=== PATIENT | female | born 1970 | race Hispanic/Latino ===

== ENCOUNTER 2022-10-19 07:41 | Emergency (ER) | payer MEDICARE, OTHER ==
[~2022-10-19] VITALS: Ht 165.1 cm; Wt 127.0 kg
[2022-10-19 08:13] LABS: BASOPHILS % (AUTO) 0.2 % (0.0-5.0); EOSINOPHILS % (AUTO) 0.2 % (0.0-8.0); HEMATOCRIT 38.5 % (36-48); LYMPHOCYTES % (AUTO) 8.7 % (21.0-51.0); MEAN CORPUSCULAR HEMOGLOBIN 27.9 pg (27.0-33.0); MEAN CORPUSCULAR HGB CONC 31.7 g/dL (32.0-36.0); MEAN CORPUSCULAR VOLUME 88.1 fL (79-99); MONOCYTES % (AUTO) 2.7 % (3.0-13.0); NEUTROPHILS % (AUTO) 87.8 % (40.0-77.0); PLATELET COUNT (AUTO) 420 K/uL (130-400); RED BLOOD CELL COUNT(AUTO) 4.37 MIL/uL (4.00-5.50); RED CELL DISTRIBUTION WIDTH 14.5 % (11.0-15.5); WHITE BLOOD COUNT (AUTO) 13.2 K/uL (4.8-10.8)
[2022-10-19 08:24] LABS: APPEARANCE,URINE CLOUDY (CLEAR); BILIRUBIN,URINE NEGATIVE (NEGATIVE); COLOR,URINE LIGHT-YELLOW (YELLOW); GLUCOSE, URINE (UA) NEGATIVE (NEGATIVE); KETONES,URINE NEGATIVE (NEGATIVE); LEUKOCYTE ESTERASE ,URINE 250 Leu/uL (NEGATIVE); NITRATE,URINE NEGATIVE (NEGATIVE); OCCULT BLOOD,URINE NEGATIVE (NEGATIVE); PROTEIN,URINE NEGATIVE (NEGATIVE); UROBILINOGEN,URINE 0.2 mg/dL (0.2-1.0)
[2022-10-19 08:31] LABS: BACTERIA,URINE FEW /HPF (None Seen); MUCUS,URINE RARE LPF (None Seen); SQUAMOUS EPITHELIAL CELL,UR MOD /HPF (0-2)
[2022-10-19 08:53] LABS: ALBUMIN 3.6 g/dL (3.5-5.0); CREATININE 1.6 mg/dL (0.5-1.5); POTASSIUM 4.1 mmol/L (3.5-5.1); TOTAL PROTEIN, SERUM 7.7 g/dL (6.0-8.3)
[2022-10-19] MEDS ORDERED: MORPHINE 4 MG SYG ONE (10:04)
[2022-10-19] MEDS ORDERED: ONDANSETRON 4MG INJ ONE (10:04)
[2022-10-19 10:05] VITALS: BP 125/70
[2022-10-19] MEDS ORDERED: 0.9%NACL 1000ML 1,000 ML IV ONE (10:30)
[2022-10-19] MEDS ORDERED: ONDANSETRON 4MG INJ IVP ONE (10:30)
[2022-10-19] MEDS ORDERED: MORPHINE 4 MG SYG IVP ONE (10:30)
[2022-10-19] MEDS ORDERED: FAMO20TA8 PO (11:25)
[2022-10-19] MEDS ORDERED: SULF1TAB42 PO (11:27)
[2022-10-19] MEDS ORDERED: CEFTRIAXONE 1G VIAL IVPB ONE (11:30)
[2022-10-19] MEDS ORDERED: CEFTRIAXONE 1G VIAL ONE (11:36)
[2022-10-19] MEDS ORDERED: ONDA4TAB10 PO (11:48)
[2022-10-19] MEDS ORDERED: MORPHINE 2 MG SYG IVP ONE (12:00)
== END 2022-10-19 12:00 | disposition home or self-care (01) ==
LOC: EDH 07:41
DX: K80.20 Calculus of gallbladder without cholecystitis without obstruction (principal); N39.0 Urinary tract infection, site not specified; E11.9 Type 2 diabetes mellitus without complications; M79.7 Fibromyalgia; I10 Essential (primary) hypertension; Z90.710 Acquired absence of both cervix and uterus; Z79.899 Other long term (current) drug therapy
CPT/HCPCS: 99285; 74176; 96374; 96375; 96361; 84484; 80053; 83690; 85025; 87040 ×2; 87088; 83605; 81001; 36415; 93005; J2270 ×2; J7030; J0696; J2405

== ENCOUNTER 2022-11-06 22:19 | Observation (INO) | payer MEDICARE ==
[~2022-11-06] VITALS: Ht 165.1 cm; Wt 124.7 kg
[~2022-11-06 22:19] MED LIST: FAMO20TA8 PO; ONDA4TAB10 PO; SULF1TAB42 PO
[2022-11-06] MEDS ORDERED: DEXTROSE 50%-WATER 50 ML DISP.SYRIN IV ONE ×2 (22:49→23:00)
[2022-11-06 23:17] LABS: BASOPHILS % (AUTO) 0.2 % (0.0-5.0); HEMATOCRIT 37.8 % (36-48); LYMPHOCYTES % (AUTO) 18.4 % (21.0-51.0); MEAN CORPUSCULAR HEMOGLOBIN 28.5 pg (27.0-33.0); MEAN CORPUSCULAR HGB CONC 32.5 g/dL (32.0-36.0); MEAN CORPUSCULAR VOLUME 87.5 fL (79-99); MONOCYTES % (AUTO) 6.3 % (3.0-13.0); NEUTROPHILS % (AUTO) 73.7 % (40.0-77.0); PLATELET COUNT (AUTO) 446 K/uL (130-400); RED BLOOD CELL COUNT(AUTO) 4.32 MIL/uL (4.00-5.50); RED CELL DISTRIBUTION WIDTH 14.6 % (11.0-15.5); WHITE BLOOD COUNT (AUTO) 9.1 K/uL (4.8-10.8)
[2022-11-06 23:33] LABS: APPEARANCE,URINE CLEAR (CLEAR); BILIRUBIN,URINE NEGATIVE (NEGATIVE); COLOR,URINE LIGHT-YELLOW (YELLOW); GLUCOSE, URINE (UA) 70 mg/dL (NEGATIVE); KETONES,URINE NEGATIVE (NEGATIVE); LEUKOCYTE ESTERASE ,URINE 500 Leu/uL (NEGATIVE); NITRATE,URINE NEGATIVE (NEGATIVE); OCCULT BLOOD,URINE NEGATIVE (NEGATIVE); PH,URINE 5.5 (5.0-8.0); PROTEIN,URINE NEGATIVE (NEGATIVE); UROBILINOGEN,URINE 0.2 mg/dL (0.2-1.0)
[2022-11-06 23:36] LABS: ALANINE AMINOTRANSFERASE 35 U/L (12-78); ALBUMIN 3.7 g/dL (3.5-5.0); ASPARTATE AMINOTRANSFERASE 23 U/L (10-37); CARBON DIOXIDE 20 mmol/L (21-32); CHLORIDE 109 mmol/L (101-111); CREATININE 1.5 mg/dL (0.5-1.5); GLOMERULAR FILTR. RATE CALC 42 mL/min (>90); POTASSIUM 3.6 mmol/L (3.5-5.1); SODIUM SERUM 140 mmol/L (136-145); UREA NITROGEN, BLOOD 33 mg/dL (7-18)
[2022-11-06 23:38] LABS: ACETAMINOPHEN < 1 mcg/mL (10-30); SALICYLATE < 2.8 mg/dL (2.8-20.0)
[2022-11-06 23:38] LABS: BACTERIA,URINE RARE /HPF (None Seen); MUCUS,URINE RARE LPF (None Seen); SQUAMOUS EPITHELIAL CELL,UR FEW /HPF (0-2); WBC,URINE 26-50 /HPF (0-1)
[2022-11-06 23:39] LABS: GLUCOSE,RANDOM 32 mg/dL (70-105)
[2022-11-06 23:48] LABS: INR 0.94 (0.85-1.15); PROTHROMBIN TIME 10.9 SEC (9.6-11.6)
[2022-11-06 23:48] LABS: AMPHET/METH SCREEN,URINE NEGATIVE (NEGATIVE); BARBITURATE SCREEN, URINE NEGATIVE (NEGATIVE); BENZODIAZEPINES SCREEN,URINE NEGATIVE (NEGATIVE); CANNABINOID SCREEN,URINE NEGATIVE (NEGATIVE); COCAINE SCREEN,URINE NEGATIVE (NEGATIVE); OPIATE SCREEN,URINE NEGATIVE (NEGATIVE); PHENCYCLIDINE SCREEN,URINE NEGATIVE (NEGATIVE)
[2022-11-06] MEDS ORDERED: DEXTROSE 10%-WATER 1,000 ML IV ONE (23:48)
[2022-11-06 23:50] LABS: PARTIAL THROMBOPLASTIN TIME 26.4 SEC (26.3-35.5)
[2022-11-07] MEDS ORDERED: DEXTROSE 50%-WATER 50 ML DISP.SYRIN IV ONE
[2022-11-07] MEDS ORDERED: CEFTRIAXONE 1G VIAL IVPB ONE (00:30)
[2022-11-07] MEDS ORDERED: ACETAMINOPHEN 325 MG TAB PO PRN ×2 (02:30)
[2022-11-07] MEDS ORDERED: ONDANSETRON 4MG INJ IV PRN (02:30)
[2022-11-07] MEDS ORDERED: NITROGLYCERIN 0.4 MG SL TAB SL PRN (02:30)
[2022-11-07] MEDS ORDERED: GLUCAGON 1MG KIT 1 MG ML IM PRN (02:30)
[2022-11-07] MEDS ORDERED: DEXTROSE 50%-WATER 50 ML DISP.SYRIN IV PRN (02:30)
[2022-11-07 03:33] VITALS: BP 137/64
[2022-11-07] MEDS ORDERED: METO-391 PO (04:11)
[2022-11-07] MEDS ORDERED: TRAM50TA4 PO (04:11)
[2022-11-07] MEDS ORDERED: GLIP10TA19 PO (04:11)
[2022-11-07] MEDS ORDERED: ALLO100T PO (04:11)
[2022-11-07] MEDS ORDERED: TIRZ10PE SQ (04:11)
[2022-11-07] MEDS ORDERED: ACET250T28 PO (04:11)
[2022-11-07] MEDS ORDERED: FENO134C21 PO (04:11)
[2022-11-07] MEDS ORDERED: GABA600T10 PO (04:11)
[2022-11-07] MEDS ORDERED: LISI40TA9 PO (04:11)
[2022-11-07] MEDS ORDERED: TOPI200T16 PO (04:11)
[2022-11-07] MEDS ORDERED: SERT-439 PO (04:11)
[2022-11-07 07:12] LABS: BASOPHILS % (AUTO) 0.3 % (0.0-5.0); EOSINOPHILS % (AUTO) 1.1 % (0.0-8.0); HEMATOCRIT 34.8 % (36-48); LYMPHOCYTES % (AUTO) 17.9 % (21.0-51.0); MEAN CORPUSCULAR HEMOGLOBIN 27.7 pg (27.0-33.0); MEAN CORPUSCULAR HGB CONC 31.6 g/dL (32.0-36.0); MEAN CORPUSCULAR VOLUME 87.7 fL (79-99); MONOCYTES % (AUTO) 6.2 % (3.0-13.0); NEUTROPHILS % (AUTO) 74.2 % (40.0-77.0); PLATELET COUNT (AUTO) 391 K/uL (130-400); RED BLOOD CELL COUNT(AUTO) 3.97 MIL/uL (4.00-5.50); RED CELL DISTRIBUTION WIDTH 14.6 % (11.0-15.5); WHITE BLOOD COUNT (AUTO) 7.4 K/uL (4.8-10.8)
[2022-11-07 07:22] LABS: HEMOGLOBIN A1C 5.9 % (4.0-6.0)
[2022-11-07 07:24] LABS: ALBUMIN 3.2 g/dL (3.5-5.0); CREATININE 1.4 mg/dL (0.5-1.5); MAGNESIUM 1.8 mg/dL (1.80-2.40); TOTAL PROTEIN, SERUM 7.1 g/dL (6.0-8.3)
[2022-11-07 07:56] VITALS: BP 119/66
[2022-11-07] MEDS ORDERED: ENOXAPARIN SODIUM 40 MG/0.4 ML SYRINGE SQ SCH (09:00)
[2022-11-07] MEDS ORDERED: FAMOTIDINE 20MG TAB PO SCH (09:00)
[2022-11-07 11:32] VITALS: BP 117/71
[2022-11-07 16:28] VITALS: BP 132/76
[2022-11-07] MEDS ORDERED: [UNRECOGNIZED DRUG - OTHER] IV SCH (21:00)
[2022-11-07] MEDS ORDERED: CEFTRIAXONE IV SCH (21:00)
[2022-11-07] MEDS ORDERED: CEFTRIAXONE 2GM VIAL IVPB SCH (21:00)
== END 2022-11-07 19:15 | disposition home or self-care (01) ==
LOC: EDH 22:19 → EDHIP 11-07 02:01 → INTOOBSV 11-07 02:01 → 3DH 11-07 03:43
PROVIDERS: ADMIT Internal Medicine; ATTEND Internal Medicine
DX: E11.649 Type 2 diabetes mellitus with hypoglycemia without coma (principal); G93.40 Encephalopathy, unspecified; I10 Essential (primary) hypertension; E66.01 Morbid (severe) obesity due to excess calories; N39.0 Urinary tract infection, site not specified; M79.7 Fibromyalgia; K80.20 Calculus of gallbladder without cholecystitis without obstruction; G47.33 Obstructive sleep apnea (adult) (pediatric); Z68.42 Body mass index [BMI] 45.0-49.9, adult; Z90.710 Acquired absence of both cervix and uterus; Z79.899 Other long term (current) drug therapy; Z98.890 Other specified postprocedural states
CPT/HCPCS: 96376; 96375; 84484; 80053 ×2; 80305; 85025 ×2; 85610; 85730; 87040 ×2; 87088; 82948 ×8; 83605; 81001; 36415 ×2; 71045; 93005; 96372; 96361; 96365; 83036; 83735; 99291; G0481; J7070 ×2; J3490; G0378 ×3; J0696; J1650; 99292